=== PATIENT | female | born 1985 | race American Indian/Alaskan Native ===

== ENCOUNTER 2018-06-07 08:51 | Emergency (ER) | payer SELFPAY ==
[2018-06-07 09:20] VITALS: BP 113/60
[2018-06-07 09:33] LABS: HCG Qualitative,Urine Negative (Negative)
[2018-06-07 09:38] LABS: Bilirubin,Urine NEG (Negative); Blood,Urine MOD (Negative); Color,Urine Yellow (Yellow); Protein,Urine <15 mg/dL mg/dL (Negative)
[2018-06-07] MEDS ORDERED: MOTRIN PO ONE (09:46)
--- NOTE | 2018-06-07 10:23 | Emergency Department Report ---
ED Abdominal Pain HPI - General Chief Complaint: Abdominal Pain Stated Complaint: SIDES EXTREME PAIN/2WKS Time Seen by Provider: 06/07/18 09:02 Source: patient Mode of arrival: Ambulatory Limitations: No Limitations - History of Present Illness Initial Comments: Patient is a 33-year-old female who is presenting with bilateral lower pelvic discomfort for the past 2 weeks. Patient states the constant pain and aching in nature. She states it's a 9 out of 10 however patient is calm and in no acute distress. Patient denies any nausea vomiting fevers chills diarrhea or cough cold congestion abnormal vaginal bleeding or abnormal vaginal discharge. Patient states that she does have some increased urinary frequency. Severity scale (0 -10): 10 - Related Data Previous Rx's Medication Instructions Recorded Last Taken Type Dicyclomine [Bentyl] 10 mg PO QID #15 capsule 06/07/18 Unknown Rx Ibuprofen [Motrin] 600 mg PO Q8H PRN #20 tablet 06/07/18 Unknown Rx traMADol [Ultram] 50 mg PO Q6HR PRN #10 tablet 06/07/18 Unknown Rx Allergies Allergy/AdvReac Type Severity Reaction Status Date / Time No Known Allergies Allergy Verified 06/07/18 08:53 ED Review of Systems ROS: Stated complaint: SIDES EXTREME PAIN/2WKS Other details as noted in HPI Comment: All other systems reviewed and negative ED Past Medical Hx - Past Medical History Previous Medical History?: No - Surgical History Past Surgical History?: No - Social History Smoking Status: Never Smoker Substance Use Type: None - Medications Home Medications: Home Medications Medication Instructions Recorded Confirmed Last Taken Type Dicyclomine [Bentyl] 10 mg PO QID #15 capsule 06/07/18 Unknown Rx Ibuprofen [Motrin] 600 mg PO Q8H PRN #20 tablet 06/07/18 Unknown Rx traMADol [Ultram] 50 mg PO Q6HR PRN #10 tablet 06/07/18 Unknown Rx ED Physical Exam - General Limitations: No Limitations General appearance: alert, in no apparent distress - Head Head exam: Present: atraumatic, normocephalic - Eye Eye exam: Present: normal appearance - ENT ENT exam: Present: mucous membranes moist - Neck Neck exam: Present: normal inspection - Respiratory Respiratory exam: Present: normal lung sounds bilaterally. Absent: respiratory distress, wheezes, rales, rhonchi - Cardiovascular Cardiovascular Exam: Present: regular rate, normal rhythm, normal heart sounds. Absent: systolic murmur, diastolic murmur, rubs, gallop - GI/Abdominal GI/Abdominal exam: Present: soft, normal bowel sounds. Absent: distended, tenderness, guarding, rebound, rigid - Extremities Exam Extremities exam: Present: normal inspection - Back Exam Back exam: Present: normal inspection - Neurological Exam Neurological exam: Present: alert, oriented X3 - Psychiatric Psychiatric exam: Present: normal affect, normal mood - Skin Skin exam: Present: warm, dry, intact, normal color. Absent: rash ED Course Vital Signs 06/07/18 08:57 Temperature 97.1 F L Pulse Rate 63 Respiratory 18 Rate Blood Pressure 113/60 O2 Sat by Pulse 96 Oximetry - Reevaluation(s) Reevaluation #1: 06/07/18 10:22 Patient's urinalysis shows no acute [place]. Patient will be sent for pelvic ultrasound to rule out ovarian cysts or other pathology that may explain her lower abdominal discomfort. Discomfort does not seem to be from a GI sourcepatient has no nausea vomiting or diarrhea and has very minimal tenderness on palpation. ED Medical Decision Making - Lab Data Lab Results 06/07/18 Range/Units 09:05 Urine Color Yellow (Yellow) Urine Turbidity Clear (Clear) Urine pH 6.0 (5.0-7.0) Ur Specific [place] 1.026 (1.003-1.030) Urine Protein <15 mg/dl (Negative) mg/dL Urine Glucose (UA) Neg (Negative) mg/dL Urine Ketones Neg (Negative) mg/dL Urine Blood Mod (Negative) Urine Nitrite Neg (Negative) Ur Reducing Substances Not Reportable Urine Bilirubin Neg (Negative) Urine Ictotest Not Reportable Urine Urobilinogen 2.0 (<2.0) mg/dL Ur Leukocyte Esterase Neg (Negative) Urine WBC (Auto) 1.0 (0.0-6.0) /HPF Urine RBC (Auto) 2.0 (0.0-6.0) /HPF U Epithel Cells (Auto) 1.0 (0-13.0) /HPF Urine HCG, Qual Negative (Negative) - Radiology Data Ultrasound of the pelvis shows no acute process. X-ray of the abdomen shows nonobstructive pattern. - Medical Decision Making No emergent condition of the found. Patient be referred to [facility] and gastroenterology. Critical care attestation.: If time is entered above; I have spent that time in minutes in the direct care of this critically ill patient, excluding procedure time. ED Disposition Clinical Impression: Abdominal pain Qualifiers: Abdominal location: lower abdomen, unspecified Qualified Code(s): R10.30 - Lower abdominal pain, unspecified Disposition: TO HOME OR SELFCARE Is pt being admited?: No Does the pt Need Aspirin: No Condition: Stable Instructions: Abdominal Pain (ED) Referrals: TUYET WOODRUFF MD [Staff Physician] - 3-5 Days DESTINI GILBERT MD [Staff Physician] - 3-5 Days Time of Disposition: 11:41
--- NOTE | 2018-06-07 10:33 | Ultrasound Report ---
ULTRASOUND PELVIC COMPLETE ULTRASOUND TRANSVAGINAL HISTORY: Pelvic pain for 2 weeks. COMPARISON: None. TECHNIQUE: Transabdominal and transvaginal ultrasound with color doppler interrogation. FINDINGS: Uterus: Normal size contour and echotexture. No uterine mass. Endometrium: Normal measuring 6 mm. Right ovary: Normal. Left ovary: Normal. No pelvic fluid or mass is identified. Normal color doppler interrogation. IMPRESSION: Unremarkable transabdominal and transvaginal pelvic ultrasounds.
--- NOTE | 2018-06-07 11:09 | XRay Report ---
AP ABDOMEN: HISTORY: Lower abdominal pain. The abdominal gas pattern is unremarkable. No masses or organomegaly is identified and there is no gross evidence of free air or fluid. No significant soft tissue calcifications are noted. IMPRESSION: Unremarkable abdomen.
== END 2018-06-07 11:51 | disposition home or self-care (01) ==
LOC: ED 08:51
DX: R10.2 Pelvic and perineal pain (principal)
CPT/HCPCS: 74018; 76830; 76856; 81001; 81025